=== PATIENT | male | born 1945 | race Caucasian/White ===

== ENCOUNTER 2016-10-14 16:41 | Emergency (ER) | payer OTHER ==
[2016-10-14] MEDS ORDERED: TDAP ADULT 0.5 ML INJ (BOOSTRIX) IM ONE (16:51)
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
[2016-10-14 18:01] VITALS: BP 150/76; PULSE 72; RESP 15; O2SAT 92
[2016-10-14 18:53] VITALS: TEMP 97.9
== END 2016-10-14 18:50 | disposition home or self-care (01) ==
LOC: EDUNIT#
DX: S09.90XA Unspecified injury of head, initial encounter (principal); Z79.82 Long term (current) use of aspirin; Z87.891 Personal history of nicotine dependence; Z91.040 Latex allergy status; V47.5XXA Car driver injured in collision with fixed or stationary object in traffic accident, initial encounter; Y92.410 Unspecified street and highway as the place of occurrence of the external cause; Y99.8 Other external cause status; Y93.89 Activity, other specified